=== PATIENT | female | born 1935 | race Caucasian/White ===

== ENCOUNTER → 2017-03-24 | Outpatient (CLI) | payer MEDICARE ==
[~2017-03-24] MED LIST: ASCO500C2 PO; ASCO500T7 PO; ASPI-496 PO; CEPH-368 PO; DIABETIC VITAMINS PO; DICY10CA3 PO; ENOX60SY4 SQ; FURO-93 PO; LEVO1CAP3 PO; LIPA1CAP45 PO; LISI5TAB7 PO; METF100010 PO; METF10002 PO; METF500T9 PO; MV-M1CAP17 PO; OMEP20CA9 PO; OMEP20TA62 PO; PSYL660P18 PO; RAMI2.5C; RAMI2.5C PO; SIMV10TA3 PO; SOLI10TA PO; THIAMINE PO; WARF2.5T PO; WARF5TAB PO; WARF7.5T6 PO-COUM; [UNRECOGNIZED DRUG - OTHER]; [UNRECOGNIZED DRUG - OTHER] PO; benfotiamine PO; multivit PO
[2017-03-24 10:10] LABS: BLOOD UREA NITROGEN 18 mg/dL (7-18)
[2017-03-24 10:15] LABS: ASPARTATE AMINO TRANSFERASE 26 U/L (15-37)
== END | disposition home or self-care (01) ==
LOC: STAR 08:41
PROVIDERS: ATTEND Thoracic Surgery (Cardiothoracic Vascular Surgery)
DX: Z01.818 Encounter for other preprocedural examination (principal); R79.1 Abnormal coagulation profile
CPT/HCPCS: 36415; 80053; 85025; 85610; 85730; 93005

== ENCOUNTER 2017-04-07 10:28 | Inpatient (IN) | payer MEDICARE ==
[~2017-04-07] VITALS: Ht 152.4 cm; Wt 58.6 kg
[~2017-04-07 10:28] MED LIST changes: +BUPIVACAINE/PF-EPI 0.5% 1:200K ONE
[2017-04-07] MEDS ORDERED: LACTATED RINGERS 1,000 ML IV SCH (11:35)
[2017-04-07 11:40] VITALS: BP 124/68
[2017-04-07] MEDS ORDERED: FENTANYL PF 250 MCG/5ML ONE (13:26)
[2017-04-07] MEDS ORDERED: ACETAMINOPHEN 650 MG/20.3 ML UDC ONE (15:48)
[2017-04-07] MEDS ORDERED: FENTANYL PF 100 MCG/2ML ONE ×2 (15:48→16:15)
[2017-04-07] MEDS ORDERED: OXYcodone 5 MG/5 ML ORAL.SOL UDC ONE (15:48)
[2017-04-07] MEDS: FENTANYL PF 100 MCG/2ML IV PRN ×4 (15:56→16:16)
[2017-04-07] MEDS ORDERED: AMYLASE HOMEMEDPO SCH (16:00)
[2017-04-07] MEDS ORDERED: DIPHENHYDRAMINE 50 MG/ML, 1ML IV PRN (16:00)
[2017-04-07] MEDS ORDERED: PROTEASE HOMEMEDPO SCH (16:00)
[2017-04-07] MEDS ORDERED: LIPASE HOMEMEDPO SCH (16:00)
[2017-04-07] MEDS ORDERED: hydrALAzine 20 MG/ML, 1ML IV PRN ×2 (16:00→16:30)
[2017-04-07] MEDS: INSULIN REGULAR 100 UNITS/ML, 3ML VIAL SQ-INSULIN SCH ×2 (16:00→22:04)
[2017-04-07] MEDS ORDERED: ONDANSETRON 2MG/ML, 2ML IVPush PRN (16:00)
[2017-04-07] MEDS ORDERED: LORazepam 2 MG/ML, 1ML IV PRN (16:00)
[2017-04-07] MEDS ORDERED: DIPHENHYDRAMINE 25 MG CAPSULE PO PRN (16:00)
[2017-04-07] MEDS ORDERED: FAMOTIDINE 20 MG TABLET PO SCH (16:00)
[2017-04-07] MEDS ORDERED: LORazepam 1MG TABLET PO PRN (16:00)
[2017-04-07] MEDS ORDERED: LACTATED RINGERS 500 ML IVBOLUS PRN (16:00)
[2017-04-07] MEDS ORDERED: [UNRECOGNIZED DRUG - OTHER] HOMEMEDPO SCH (16:00)
[2017-04-07] MEDS ORDERED: HYDROcodone/APAP 7.5-325MG/15ML UDC ONE (16:13)
[2017-04-07] MEDS ORDERED: HYDROmorphone 2 MG/ML, 1ML ONE (16:15)
[2017-04-07] MEDS: HYDROmorphone 1 MG/ML, 1ML IV PRN ×2 (16:21→16:34)
[2017-04-07] MEDS ORDERED: OXYcodone 5 MG/5 ML ORAL.SOL UDC PO PRN (16:30)
[2017-04-07] MEDS ORDERED: hydrALAzine 20 MG/ML, 1ML ONE (16:30)
[2017-04-07] MEDS ORDERED: ACETAMINOPHEN 325 MG TABLET PO PRN (16:30)
[2017-04-07] MEDS ORDERED: METOPROLOL 1 MG/ML, 5ML IV PRN (16:30)
[2017-04-07] MEDS ORDERED: PROMETHAZINE 25 MG/ML, 1ML IV PRN (16:30)
[2017-04-07] MEDS: OXYBUTYNIN CHLORIDE 5 MG TABLET PO SCH (20:58)
[2017-04-07] MEDS: LACTATED RINGERS 1,000 ML IV SCH (20:58)
[2017-04-07] MEDS: FAMOTIDINE 20 MG/2 ML IV SCH (20:58)
[2017-04-07] MEDS: morphine SULFATE 10 MG/ML, 1ML IV PRN ×3 (21:28→23:36)
[2017-04-07 21:43] VITALS: BP 109/66
[2017-04-07] MEDS: metFORMIN XR 500 MG TAB.ER.24H PO SCH (22:04)
[2017-04-08 00:02] VITALS: BP 100/52
[2017-04-08 03:55] VITALS: BP 99/49
[2017-04-08] MEDS: LACTATED RINGERS 1,000 ML IV SCH ×2 (04:42→21:12)
[2017-04-08] MEDS: morphine SULFATE 10 MG/ML, 1ML IV PRN (05:05)
[2017-04-08] MEDS: INSULIN REGULAR 100 UNITS/ML, 3ML VIAL SQ-INSULIN SCH ×4 (07:13→21:00)
[2017-04-08] MEDS: RAMIPRIL 2.5 MG CAPSULE PO SCH (08:39)
[2017-04-08] MEDS: FAMOTIDINE 20 MG/2 ML IV SCH ×2 (08:54→19:47)
[2017-04-08] MEDS: OXYBUTYNIN CHLORIDE 5 MG TABLET PO SCH ×4 (08:55→21:11)
[2017-04-08] MEDS: OMEPRAZOLE 20 MG CAPSULE.DR PO SCH (08:55)
[2017-04-08] MEDS: ENOXAPARIN 40 MG/0.4 ML SQ SCH (08:55)
[2017-04-08] MEDS: HYDROcodone/APAP 5/325 TABLET PO PRN ×3 (08:59→17:04)
[2017-04-08 09:02] VITALS: BP 108/56
[2017-04-08] MEDS ORDERED: NEOSTIGMINE 1 MG/ML, 10ML ONE (13:37)
[2017-04-08] MEDS ORDERED: CEFAZOLIN 1,000 MG ONE (13:37)
[2017-04-08] MEDS ORDERED: PROPOFOL 10 MG/ML, 20ML ONE (13:37)
[2017-04-08] MEDS ORDERED: ROCURONIUM 10 MG/ML ONE (13:37)
[2017-04-08] MEDS ORDERED: ONDANSETRON 2MG/ML, 2ML ONE (13:37)
[2017-04-08] MEDS ORDERED: GLYCOPYRROLATE 0.2MG/1ML ONE (13:37)
[2017-04-08 15:54] VITALS: BP 101/63
[2017-04-08 19:51] VITALS: BP 120/64
[2017-04-08] MEDS: metFORMIN XR 500 MG TAB.ER.24H PO SCH (21:00)
[2017-04-09 00:44] VITALS: BP 133/69
[2017-04-09] MEDS: HYDROcodone/APAP 5/325 TABLET PO PRN ×3 (05:46→15:37)
[2017-04-09] MEDS: INSULIN REGULAR 100 UNITS/ML, 3ML VIAL SQ-INSULIN SCH ×3 (07:00→16:00)
[2017-04-09 08:53] VITALS: BP 122/52
[2017-04-09] MEDS: ENOXAPARIN 40 MG/0.4 ML SQ SCH (08:59)
[2017-04-09] MEDS: OMEPRAZOLE 20 MG CAPSULE.DR PO SCH (09:00)
[2017-04-09] MEDS: OXYBUTYNIN CHLORIDE 5 MG TABLET PO SCH ×2 (09:00→16:00)
[2017-04-09] MEDS: RAMIPRIL 2.5 MG CAPSULE PO SCH (09:00)
[2017-04-09] MEDS: FAMOTIDINE 20 MG/2 ML IV SCH (09:01)
[2017-04-09] MEDS: LACTATED RINGERS 1,000 ML IV SCH (13:00)
[2017-04-09 14:11] VITALS: BP 100/62
== END 2017-04-09 16:00 | disposition home health service (06) | DRG 354 ==
LOC: OUT 10:28 → ORIP 15:34 → 4NOR 17:21 → OBSVTOIN 04-08 14:37
PROVIDERS: ADMIT Thoracic Surgery (Cardiothoracic Vascular Surgery); ATTEND Thoracic Surgery (Cardiothoracic Vascular Surgery)
PROC: 8E0W4CZ Robotic Assisted Procedure of Trunk Region, Percutaneous Endoscopic Approach (ICD-10-PCS; 2017-04-07)
PROC: 0WUF4JZ Supplement Abdominal Wall with Synthetic Substitute, Percutaneous Endoscopic Approach (ICD-10-PCS; principal; 2017-04-07 13:30)
DX: K43.0 Incisional hernia with obstruction, without gangrene (principal); D68.69 Other thrombophilia; Z79.01 Long term (current) use of anticoagulants; Z88.0 Allergy status to penicillin; Z88.8 Allergy status to other drugs, medicaments and biological substances; Z90.49 Acquired absence of other specified parts of digestive tract
CPT/HCPCS: 36415; 82962; 85610; 85730; G0378; J0690; J1170; J1650; J1815; J2405; J2704; J2710; J3010; J3490; J7120; C1781; J0360; J2270; S0028

== ENCOUNTER 2018-06-22 20:05 | Inpatient (IN) | payer MEDICARE ==
[~2018-06-22] VITALS: Ht 152.4 cm; Wt 61.5 kg
[~2018-06-22 20:05] MED LIST changes: +AMLO2.5T3 PO; -BUPIVACAINE/PF-EPI 0.5% 1:200K ONE; +CEPH-375 PO; -RAMI2.5C; -RAMI2.5C PO; +RAMI2.5C2; +RAMI2.5C2 PO; -SOLI10TA PO; +SOLI10TA2 PO; +VITA1CAP PO; +WARF7.5T46 PO-COUM; -WARF7.5T6 PO-COUM; +[UNRECOGNIZED DRUG - OTHER]
[2018-06-22] MEDS ORDERED: ONDANSETRON 2MG/ML, 2ML IVPush ONE (21:30)
[2018-06-22] MEDS ORDERED: ONDANSETRON ODT 4 MG ONE (21:30)
[2018-06-22] MEDS ORDERED: MORPHINE SULFATE 4 MG/ML, 1ML ONE ×2 (21:30→22:53)
[2018-06-22] MEDS: MORPHINE SULFATE 4 MG/ML, 1ML IVPush PRN ×2 (21:35→23:00)
[2018-06-22 22:25] LABS: INTERNATIONAL NORMALIZED RATIO 3.05 (0.93-1.1); PROTHROMBIN TIME 30.7 Seconds (9.6-11.5)
[2018-06-22 23:28] LABS: BASOPHILS # (AUTO) 0.02 x10^3/uL (0-0.1); BASOPHILS % (AUTO) 0 % (0-1); EOSINOPHILS # (AUTO) 0.03 x10^3/uL (0-0.4); EOSINOPHILS % (AUTO) 0 % (1-7); LYMPHOCYTES # (AUTO) 0.81 x10^3/uL (1-3.4); LYMPHOCYTES % (AUTO) 7 % (22-44); MD NO; MEAN CORPUSCULAR HEMOGLOBIN 29.6 pg (27.0-34.8); MEAN CORPUSCULAR HGB CONC 33.3 g/dL (32.4-35.8); MEAN CORPUSCULAR VOLUME 88.8 fL (80-100); MEAN PLATELET VOLUME 9.4 fL (7.4-10.4); MONOCYTES # (AUTO) 0.48 x10^3/uL (0.2-0.8); MONOCYTES % (AUTO) 4 % (2-9); NEUTROPHILS # (AUTO) 9.82 x10^3/uL (1.8-6.8); NEUTROPHILS % (AUTO) 88 % (42-75); PLATELET COUNT 218 x10^3/uL (130-400); RED BLOOD COUNT 4.28 x10^6/uL (3.82-5.3); RED CELL DISTRIBUTION WIDTH 14.7 % (9.6-15.2)
[2018-06-22 23:52] LABS: ALANINE AMINOTRANSFERASE 29 U/L (12-78); ALBUMIN 3.2 g/dL (3.4-5.0); ANION GAP 7 mmol/L (5-15); CALCIUM 8.5 mg/dL (8.5-10.1); CHLORIDE 107 mmol/L (98-107); CREATININE 0.84 mg/dL (0.55-1.02)
[2018-06-22 23:55] LABS: ALKALINE PHOSPHATASE 103 U/L (45-117); BILIRUBIN,TOTAL 0.4 mg/dL (0.2-1.0); TOTAL PROTEIN 6.3 g/dL (6.4-8.2)
[2018-06-23] MEDS ORDERED: MORPHINE SULFATE 4 MG/ML, 1ML IVPush PRN (00:30)
[2018-06-23] MEDS ORDERED: ONDANSETRON 2MG/ML, 2ML IVPush PRN ×2 (00:30→01:00)
[2018-06-23 00:45] VITALS: BP 137/51
[2018-06-23] MEDS ORDERED: ONDANSETRON ODT 4 MG PO PRN (01:00)
[2018-06-23] MEDS ORDERED: DOCUSATE 100 MG CAPSULE PO PRN (01:00)
[2018-06-23] MEDS ORDERED: POLYETHYLENE GLYCOL 17 GM PACKET PO PRN (01:00)
[2018-06-23] MEDS ORDERED: PROMETHAZINE 25 MG/ML, 1ML IM PRN (01:00)
[2018-06-23] MEDS ORDERED: hydrALAzine 20 MG/ML, 1ML IVPush PRN (01:00)
[2018-06-23] MEDS ORDERED: BISACODYL 10 MG SUPP PR PRN (01:00)
[2018-06-23 01:16] VITALS: BP 137/51
[2018-06-23 01:50] LABS: HEMOGLOBIN A1C 6.5 % (4.2-6.3)
[2018-06-23] MEDS: SODIUM CHLORIDE 0.9% 1,000 ML IV SCH ×2 (01:51→11:54)
[2018-06-23 01:52] LABS: FREE T4 (FREE THYROXINE) 1.29 ng/dL (0.76-1.46); THYROID STIMULATING HORMONE 1.91 mIU/L (0.358-3.740)
[2018-06-23] MEDS: morphine SULFATE 10 MG/ML, 1ML IVPush PRN ×3 (06:13→16:02)
[2018-06-23 06:34] VITALS: BP 113/63
[2018-06-23] MEDS: INSULIN LISPRO 100 UNITS/ML, PEN SQ-INSULIN SCH ×4 (07:00→20:14)
[2018-06-23] MEDS: ASPIRIN 81 MG TABLET EC PO SCH (09:05)
[2018-06-23] MEDS: MULTIVITS,STRESS FORMULA 1 TABLET PO SCH (09:31)
[2018-06-23] MEDS: ASCORBIC ACID 500 MG TABLET PO SCH (09:31)
[2018-06-23] MEDS: OMEPRAZOLE 20 MG CAPSULE.DR PO SCH (09:31)
[2018-06-23 12:53] VITALS: BP 108/61
[2018-06-23] MEDS ORDERED: WARFARIN 2.5 MG TABLET PO-COUM ONE (18:00)
[2018-06-23 19:40] VITALS: BP 114/42
[2018-06-24 02:58] VITALS: BP 113/70
[2018-06-24 06:10] LABS: INTERNATIONAL NORMALIZED RATIO 2.73 (0.93-1.1); PROTHROMBIN TIME 27.6 Seconds (9.6-11.5)
[2018-06-24 06:13] LABS: BASOPHILS # (AUTO) 0.02 x10^3/uL (0-0.1); BASOPHILS % (AUTO) 0 % (0-1); EOSINOPHILS # (AUTO) 0.09 x10^3/uL (0-0.4); EOSINOPHILS % (AUTO) 1 % (1-7); LYMPHOCYTES # (AUTO) 0.61 x10^3/uL (1-3.4); LYMPHOCYTES % (AUTO) 8 % (22-44); MD NO; MEAN CORPUSCULAR HGB CONC 33.6 g/dL (32.4-35.8); MEAN CORPUSCULAR VOLUME 89.2 fL (80-100); MEAN PLATELET VOLUME 8.4 fL (7.4-10.4); MONOCYTES # (AUTO) 0.64 x10^3/uL (0.2-0.8); MONOCYTES % (AUTO) 8 % (2-9); NEUTROPHILS # (AUTO) 6.48 x10^3/uL (1.8-6.8); NEUTROPHILS % (AUTO) 83 % (42-75); PLATELET COUNT 175 x10^3/uL (130-400); RED BLOOD COUNT 3.67 x10^6/uL (3.82-5.3); RED CELL DISTRIBUTION WIDTH 14.8 % (9.6-15.2)
[2018-06-24 06:14] LABS: ALANINE AMINOTRANSFERASE 23 U/L (12-78); ALBUMIN 2.8 g/dL (3.4-5.0); ANION GAP 6 mmol/L (5-15); CALCIUM 7.6 mg/dL (8.5-10.1); CHLORIDE 107 mmol/L (98-107); CHOLESTEROL, TOTAL 120 mg/dL (140-239); CREATININE 0.67 mg/dL (0.55-1.02)
[2018-06-24 06:17] LABS: ALKALINE PHOSPHATASE 87 U/L (45-117); BILIRUBIN,TOTAL 0.7 mg/dL (0.2-1.0); CHOL/HDL RATIO 3.3; HDL CHOL % 30 % (28-40); HDL CHOLESTEROL (DIRECT) 36 mg/dL (40-60); LDL CHOLESTEROL,CALCULATED 53 mg/dL (54-169); LDL/HDL RATIO 1.5 (0.5-3.0); TOTAL PROTEIN 5.9 g/dL (6.4-8.2); TRIGLYCERIDES 155 mg/dL (50-200); VLDL CHOLESTEROL 31 mg/dL (0-25)
[2018-06-24] MEDS: INSULIN LISPRO 100 UNITS/ML, PEN SQ-INSULIN SCH ×4 (07:51→22:30)
[2018-06-24] MEDS: MULTIVITS,STRESS FORMULA 1 TABLET PO SCH (07:52)
[2018-06-24] MEDS: OMEPRAZOLE 20 MG CAPSULE.DR PO SCH (07:52)
[2018-06-24] MEDS: ASCORBIC ACID 500 MG TABLET PO SCH (07:52)
[2018-06-24] MEDS: ASPIRIN 81 MG TABLET EC PO SCH (07:52)
[2018-06-24 09:40] VITALS: BP 112/68
[2018-06-24] MEDS: morphine SULFATE 10 MG/ML, 1ML IVPush PRN (10:56)
[2018-06-24 11:29] VITALS: BP 111/65
[2018-06-24 15:25] VITALS: BP 108/67
[2018-06-24] MEDS ORDERED: WARFARIN 2.5 MG TABLET PO-COUM SCH (18:00)
[2018-06-24 21:53] VITALS: BP 128/70
[2018-06-24] MEDS ORDERED: WARFARIN 2.5 MG TABLET PO-COUM ONE (22:08)
[2018-06-25 01:12] VITALS: BP 129/79
[2018-06-25] MEDS: HYDROcodone/APAP 5/325 TABLET PO PRN ×3 (01:56→10:56)
[2018-06-25 04:37] LABS: INTERNATIONAL NORMALIZED RATIO 2.4 (0.93-1.1); PROTHROMBIN TIME 24.3 Seconds (9.6-11.5)
[2018-06-25] MEDS: INSULIN LISPRO 100 UNITS/ML, PEN SQ-INSULIN SCH ×3 (06:51→16:18)
[2018-06-25] MEDS: ASCORBIC ACID 500 MG TABLET PO SCH (08:03)
[2018-06-25] MEDS: OMEPRAZOLE 20 MG CAPSULE.DR PO SCH (08:03)
[2018-06-25] MEDS: ASPIRIN 81 MG TABLET EC PO SCH (08:03)
[2018-06-25] MEDS: MULTIVITS,STRESS FORMULA 1 TABLET PO SCH (08:03)
[2018-06-25 08:16] VITALS: BP 109/63
[2018-06-25 13:44] VITALS: BP 116/68
[2018-06-25] MEDS ORDERED: HYDR-3240 PO (13:58)
[2018-06-25] MEDS ORDERED: WARF3TAB PO-COUM (13:58)
[2018-06-25] MEDS ORDERED: INSU100I11 SQ-INSULIN (13:58)
[2018-06-25] MEDS ORDERED: WARFARIN 2 MG TABLET PO-COUM ONE (17:59)
[2018-06-25] MEDS ORDERED: WARFARIN 3 MG TABLET PO-COUM ONE (18:00)
[2018-06-25 19:12] VITALS: BP 113/67
[2018-06-25 20:45] VITALS: BP 111/64
== END 2018-06-25 20:30 | DRG 563 ==
LOC: ED 23:17 → EDIP 06-23 00:02 → 4NOR 06-23 00:35
PROVIDERS: ADMIT Internal Medicine; ATTEND Internal Medicine
DX: S42.202A Unspecified fracture of upper end of left humerus, initial encounter for closed fracture (principal); S32.592A Other specified fracture of left pubis, initial encounter for closed fracture; E44.0 Moderate protein-calorie malnutrition; K86.1 Other chronic pancreatitis; D68.69 Other thrombophilia; W01.0XXA Fall on same level from slipping, tripping and stumbling without subsequent striking against object, initial encounter; Y93.01 Activity, walking, marching and hiking; Y99.8 Other external cause status; E10.65 Type 1 diabetes mellitus with hyperglycemia; E78.5 Hyperlipidemia, unspecified; I11.0 Hypertensive heart disease with heart failure; I34.1 Nonrheumatic mitral (valve) prolapse; I48.0 Paroxysmal atrial fibrillation; I48.2 Chronic atrial fibrillation; I50.9 Heart failure, unspecified; Y92.009 Unspecified place in unspecified non-institutional (private) residence as the place of occurrence of the external cause; Z79.01 Long term (current) use of anticoagulants; Z87.891 Personal history of nicotine dependence; Z90.49 Acquired absence of other specified parts of digestive tract; Z95.0 Presence of cardiac pacemaker; Z95.3 Presence of xenogenic heart valve; Z79.82 Long term (current) use of aspirin; Z79.899 Other long term (current) drug therapy; I95.9 Hypotension, unspecified; Z88.6 Allergy status to analgesic agent; Z88.1 Allergy status to other antibiotic agents; Z88.0 Allergy status to penicillin; Z68.26 Body mass index [BMI] 26.0-26.9, adult
CPT/HCPCS: 36415; 80053; 80061; 82962; 83036; 83735; 84439; 84443; 85025; 85610; 96374; 96375; 96376; G0378; J2405; J1815; J2270; J7030

== ENCOUNTER → 2018-07-28 | Outpatient (CLI) | payer MEDICARE ==
[~2018-07-28] MED LIST changes: +HYDR-3240 PO; +INSU100I11 SQ-INSULIN; +WARF3TAB PO-COUM
== END | disposition home or self-care (01) ==
LOC: RAD 16:33
PROVIDERS: ATTEND Physician Assistant Surgical
DX: S42.295A Other nondisplaced fracture of upper end of left humerus, initial encounter for closed fracture (principal); R60.0 Localized edema; X58.XXXA Exposure to other specified factors, initial encounter; Y93.89 Activity, other specified; Y92.89 Other specified places as the place of occurrence of the external cause; Y99.8 Other external cause status

== ENCOUNTER → 2018-10-08 | Outpatient (CLI) | payer MEDICARE ==
[~2018-10-08] MED LIST changes: -AMLO2.5T3 PO; +AMLO2.5T5 PO
== END | disposition home or self-care (01) ==
LOC: CFH 08:56
PROVIDERS: ATTEND Orthopaedic Surgery
DX: S32.592A Other specified fracture of left pubis, initial encounter for closed fracture (principal); S32.059A Unspecified fracture of fifth lumbar vertebra, initial encounter for closed fracture; X58.XXXA Exposure to other specified factors, initial encounter; Y93.89 Activity, other specified; Y92.89 Other specified places as the place of occurrence of the external cause; Y99.8 Other external cause status
CPT/HCPCS: 72192

== ENCOUNTER 2018-12-20 11:31 | Emergency (ER) | payer MEDICARE ==
[~2018-12-20] VITALS: Ht 152.4 cm; Wt 56.3 kg
--- NOTE | 2018-12-20 12:08 | NUR ---
Pt amb from lobby to 38
[2018-12-20 12:22] LABS: INTERNATIONAL NORMALIZED RATIO 1.89 (0.93-1.1); PROTHROMBIN TIME 19.4 Seconds (9.6-11.5)
[2018-12-20 12:25] LABS: ALBUMIN 3.6 g/dL (3.4-5.0); ANION GAP 9 mmol/L (5-15); CALCIUM 9.8 mg/dL (8.5-10.1); CHLORIDE 106 mmol/L (98-107)
[2018-12-20 12:26] LABS: BASOPHILS # (AUTO) 0.03 x10^3/uL (0-0.1); BASOPHILS % (AUTO) 1 % (0-1); EOSINOPHILS # (AUTO) 0.04 x10^3/uL (0-0.4); EOSINOPHILS % (AUTO) 1 % (1-7); LYMPHOCYTES # (AUTO) 0.86 x10^3/uL (1-3.4); LYMPHOCYTES % (AUTO) 22 % (22-44); MD NO; MEAN CORPUSCULAR HEMOGLOBIN 29.3 pg (27.0-34.8); MEAN CORPUSCULAR HGB CONC 33.6 g/dL (32.4-35.8); MEAN CORPUSCULAR VOLUME 87.2 fL (80-100); MEAN PLATELET VOLUME 9.2 fL (7.4-10.4); MONOCYTES # (AUTO) 0.34 x10^3/uL (0.2-0.8); MONOCYTES % (AUTO) 9 % (2-9); NEUTROPHILS # (AUTO) 2.58 x10^3/uL (1.8-6.8); NEUTROPHILS % (AUTO) 67 % (42-75); PLATELET COUNT 187 x10^3/uL (130-400); RED BLOOD COUNT 5.01 x10^6/uL (3.82-5.3); RED CELL DISTRIBUTION WIDTH 15.7 % (9.6-15.2)
[2018-12-20 12:27] LABS: ALANINE AMINOTRANSFERASE 43 U/L (12-78); ALKALINE PHOSPHATASE 147 U/L (45-117); BILIRUBIN,TOTAL 0.5 mg/dL (0.2-1.0); CREATININE 0.81 mg/dL (0.55-1.02); TOTAL PROTEIN 7.3 g/dL (6.4-8.2)
[2018-12-20 12:51] VITALS: BP 155/55
--- NOTE | 2018-12-20 12:51 | NUR ---
UA COLLECTED AND SENT TO LAB, ALL OTHER LABS DRAWN IN PIT. RAD COMPLETED. PT ATTEMPTED STOOL SAMPLE BUT PROVIDED CHUNCKS AND NOT DIARREAH. UPDATED.
[2018-12-20 12:54] LABS: TROPONIN I < 0.015 ng/mL (0.000-0.045)
[2018-12-20 13:17] LABS: MICROSCOPIC NOT IND
[2018-12-20 13:32] LABS: CULTURE INDICATED? NO
--- NOTE | 2018-12-20 13:40 | NUR ---
ALL RESUTLS BACK AT THIS TIME, CHART UP FOR RECHECK
--- NOTE | 2018-12-20 13:49 | NUR ---
MD TO BEDSIDE TO UPDATE PT ON POC.
== END 2018-12-20 14:10 | disposition home or self-care (01) ==
LOC: ED 13:59
DX: R11.0 Nausea (principal); R05 Cough; R53.1 Weakness; E11.9 Type 2 diabetes mellitus without complications; I48.91 Unspecified atrial fibrillation; E78.5 Hyperlipidemia, unspecified; I11.0 Hypertensive heart disease with heart failure; I50.9 Heart failure, unspecified; Z90.89 Acquired absence of other organs; Z90.49 Acquired absence of other specified parts of digestive tract; Z95.0 Presence of cardiac pacemaker; Z95.2 Presence of prosthetic heart valve; Z88.0 Allergy status to penicillin; Z88.8 Allergy status to other drugs, medicaments and biological substances; Z88.6 Allergy status to analgesic agent
CPT/HCPCS: 36415; 71046; 80053; 81003; 82962; 83880; 84484; 85025; 85610; 87040; 93005; 99284